=== PATIENT | female | born 1945 | race Caucasian/White ===

== ENCOUNTER → 2017-01-07 | Outpatient (CLI) | payer OTHER ==
[~2017-01-07] MED LIST: AVELOX400 MG PO; EMLA 30 GM30 GM TP; FASLODEX250 MG/5 M IM; IBRANCE125 MG PO; PHENERGAN VC1 ML PO; TESSALON PERLE100 MG PO; TYLENOL REGULA325 MG PO; VITAMIN D10000 UNIT PO; XELODA500 MG; XELODA500 MG PO; XGEVA120 MG/1.7 SC; ZOMETA 4 M4 MG/100 M IV; ZYRTEC10 M2 PO
== END | disposition home or self-care (01) ==
LOC: RAD 12:57 → EDSTATUS 14:00
PROC: 0W993ZZ Drainage of Right Pleural Cavity, Percutaneous Approach (ICD-10-PCS; principal; 2017-01-07)
DX: J90 Pleural effusion, not elsewhere classified (principal); C50.919 Malignant neoplasm of unspecified site of unspecified female breast
CPT/HCPCS: 76942; 88108; 88305

== ENCOUNTER → 2017-03-18 | Outpatient (CLI) | payer MEDICARE, OTHER ==
[~2017-03-18] MED LIST changes: +TAMOXIFEN CITRA20 MG PO
== END | disposition home or self-care (01) ==
LOC: CDC 09:04
DX: R94.31 Abnormal electrocardiogram [ECG] [EKG] (principal); C79.51 Secondary malignant neoplasm of bone; J90 Pleural effusion, not elsewhere classified; Z87.09 Personal history of other diseases of the respiratory system
CPT/HCPCS: 93000

== ENCOUNTER 2017-03-26 21:48 | Inpatient (IN) | payer OTHER ==
[~2017-03-26] VITALS: Ht 162.6 cm; Wt 62.6 kg
[~2017-03-26 21:48] MED LIST changes: +ERGOCALCIF50000 UNIT PO
[2017-03-27 09:47] VITALS: BP 143/88
[2017-03-27 15:00] VITALS: BP 115/81
[2017-03-27 18:00] VITALS: BP 130/84
[2017-03-27 20:00] VITALS: BP 125/79
[2017-03-27 22:00] VITALS: BP 130/77
[2017-03-28] VITALS (8 sets, daily range): BP systolic 92–127; BP diastolic 64–83
[2017-03-28 01:17] LABS: METH RESISTANT S AUREUS PCR NEGATIVE (NEGATIVE)
[2017-03-28 01:23] LABS: PROBE CHECK PASS; SPECIMEN PROCESSING CONTROL PASS
[2017-03-28 10:15] LABS: HEMATOCRIT 35.3 % (36.0-46.0); MCH 27.3 PG (29.0-34.0); MCHC 31.4 G/DL (30.0-36.0); MCV 86.7 FL (83-99); MEAN PLAT.VOLUME 9.6 uM^3 (9.5-12.4); PLATELET COUNT 188 K/uL (156-360); RBC DIS.WIDTH-CV 15.1 % (11.8-14.6); RBC DIS.WIDTH-SD 48.4 % (39-53); RED BLOOD COUNT 4.07 M/uL (3.80-5.20); WHITE BLOOD COUNT 10.5 K/uL (4.1-10.2)
[2017-03-28 10:50] LABS: ANION GAP 8 MEQ/L (2-14); CHLORIDE 102 MEQ/L (99-109); GFR ESTIMATE (CALCULATED) > 59 mL/min/; GLUCOSE 158 mg/dL (70-99); POTASSIUM 4.1 MEQ/L (3.7-5.4); SAMPLE HEMOLYSIS CHECK 0; SAMPLE ICTERIC CHECK 0; SAMPLE LIPEMIA CHECK 0; SODIUM 135 MEQ/L (136-147); UREA NITROGEN (BUN) 12 mg/dL (9-23)
[2017-03-29] VITALS: BP 111/73
[2017-03-29 04:00] VITALS: BP 112/70
[2017-03-29 08:00] VITALS: BP 106/71
[2017-03-29 12:00] VITALS: BP 102/60
[2017-03-29] MEDS ORDERED: DOCUSATE SODIU100 MG PO (15:23)
[2017-03-29] MEDS ORDERED: HYDROCODON-ACE1 EAC7 PO (15:23)
[2017-03-29] MEDS ORDERED: LOPRESSOR25 MG PO (15:23)
== END 2017-03-29 15:56 | disposition home or self-care (01) | DRG 982 ==
LOC: CANRESERV 21:48 → ENRESERV 21:48 → 4WEST 03-27 08:37 → 2SOUTH 03-27 08:37 → ENRESERV 03-27 11:14 → CANRESERV 03-27 11:14 → 2SOUTH 03-27 13:07 → ENRESERV 03-27 13:19 → 4WEST 03-27 14:37
PROVIDERS: Thoracic Surgery (Cardiothoracic Vascular Surgery)
DX: C79.51 Secondary malignant neoplasm of bone (principal); J91.0 Malignant pleural effusion; Z92.21 Personal history of antineoplastic chemotherapy; Z85.3 Personal history of malignant neoplasm of breast
CPT/HCPCS: 71010; 71020; 80048; 85027; 87641; 88305; 88341 TC; 88342 TC; 94010; 94640; 94640 76; 94760; 94799; 97530 GO; 97530 GP; 99202; J0131; J0330; J1100; J1170; J1650; J2405; J2710; J3010; J7120